=== PATIENT | female | born 1940 | race Caucasian/White ===

== ENCOUNTER 2017-04-27 14:16 | Emergency (ER) | payer OTHER ==
[2017-04-27 14:26] VITALS: BP 128/80; BMI 31.8
--- NOTE | 2017-04-27 15:28 | DR.GENAD ---
HPI - PCP Primary Care Physician: Thom - Complaint/Symptoms Chief Complaint Doctors Comments: Patient presents with complaint of cough that has gotten worse in the past couple days. Has history of lung bronchitis/copd. Chief Complaint:: "I had the flu around otto and I got over it. Now I feel just like I did when I had the flu and I feel like I can't breath. I have had a productive cough for years now, but it seems a little worse. Also, a couple of days ago I was cleaning the bathroom and I guess the chemicals were too strong. I can't smell anything now. I am thinking it could be some chemical pnemonia." - Source History Provided: Patient - Mode of Arrival Mode of Arrival: Ambulatory - Timing Onset of Chief Complaint: 04/25/17 PMH - PMH Past Medical History: Yes Past Medical History: Asthma, Diabetes, Hypertension Past Surgical History: Yes Surgical History: Hysterectomy - Family History History of Family Medical Conditions: Yes Family Medical History: Diabetes Mellitus, MD, Hypertension - Social History Does patient currently use any type of tobacco product: No Have you used tobacco products in the last 12 months: No Type of Tobacco Use: None Does any household member use tobacco: No Alcohol Use: Rarely Do you use any recreational Drugs:: No Lives With: Family Lives Where: Home - infectious screening In the last 2 months have you had wt loss of >10#?: NO Have you had fever, night sweats or hemotysis?: No Have you traveled outside the country in the last 6 months?: No Isolation: Standard ROS - Review of Systems Eyes: No Symptoms Reported ENTM: No Symptoms Reported Respiratoy: Non-Productive Cough Cardiovascular: No Symptoms Reported Gastrointestinal/Abdominal: No Symptoms Reported Genitourinary: No Symptoms Reported Neurological: No Symptoms Reported Musculoskeletal: No Symptoms Reported Integumentary: No Symptoms Reported Hematologic/Lymphatic: No Symptoms Reported Endocrine: No Symptoms Reported Psychiatric: No Symptoms Reported All Other Systems: Reviewed and Negative PE - Vital Signs Vitals: Temperature 100.1 F Pulse Rate 73 Respiratory Rate 20 Blood Pressure 128/80 O2 Sat by Pulse Oximetry 96 - General General Appearance: Alert, In No Apparent Distress - Head Head Exam: Normal Inspection, Atraumatic - Eyes Eye exam: Normal Appearance, PERRL, EOMI - ENT ENT Exam: Normal Exam, Normal Oropharynx External Ear Exam: Normal External Inspection TM/Canal Exam: Bilateral Normal Nose Exam: Normal Nose Exam Mouth Exam: Normal Inspection Throat Exam: Normal Inspection - Neck Neck Exam: Normal Inspection - Chest Chest Inspection: Normal Inspection - Respiratory Respiratory Exam: Prolonged Expiratory Phase Respiratory Exam: Bilateral Rhonchi - Cardiovascular Cardiovascular Exam: Regular Rate - Abdominal Exam Abdominal Exam: Normal Inspection, Normal Bowel Sounds Abdominal Tenderness: negative: RUQ, RLQ, LUQ, LLQ, Epigastrium, Suprapubic, Diffuse, Mild, Moderate, Severe, Other - Extremities Extremities Exam: Normal Inspection, Full ROM - Back Back Exam: Normal Inspection - Neurologic Neurological Exam: Alert, Oriented X3, CN II-XII Intact - Psychiatric Psychiatric Exam: Normal Affect - Skin Skin Exam: Warm, Dry, Intact ROR - Labs Reviewed Result Diagrams: 04/27/17 15:50 04/27/17 15:50 Laboratory: WBC 7.4 X10^3/uL (3.6-10.0) 04/27/17 15:50 RBC 4.76 X10^6/uL (3.5-5.4) 04/27/17 15:50 Hgb 14.9 g/dL (12.0-16.0) 04/27/17 15:50 Hct 43.5 % (36.0-47.0) 04/27/17 15:50 MCV 91.3 fL (80.0-100.0) 04/27/17 15:50 MCH 31.3 pg (27.0-34.0) 04/27/17 15:50 MCHC 34.3 g/dL (33.0-35.0) 04/27/17 15:50 RDW 13.6 % (11.6-16.5) 04/27/17 15:50 Plt Count 201 X10^3/uL (150.0-450.0) 04/27/17 15:50 MPV 8.5 fL (7.4-11.0) 04/27/17 15:50 Neut % 78.4 % (42.0-75.0) H 04/27/17 15:50 Lymph % 11.7 % (21.0-51.0) L 04/27/17 15:50 [place] % 8.2 % (0.0-13.0) 04/27/17 15:50 Eos % 1.2 % (0.9-2.9) 04/27/17 15:50 Baso % 0.5 % (0.2-1.0) 04/27/17 15:50 Neut # 5.8 x10^3/uL (2.2-4.8) H 04/27/17 15:50 Lymph # 0.9 X10^3/uL (1.3-2.9) L 04/27/17 15:50 [place] # 0.6 x10^3/uL (0.3-0.8) 04/27/17 15:50 Eos # 0.1 x10^3/uL (0.0-0.2) 04/27/17 15:50 Baso # 0.0 X10^3/uL (0.0-0.1) 04/27/17 15:50 Absolute Nucleated RBC 0.0 /100WBC 04/27/17 15:50 Sodium 137 mmol/L (136-145) 04/27/17 15:50 Corrected Sodium 138 mmol/L (136-145) 04/27/17 15:50 Potassium 3.9 mmol/L (3.5-5.1) 04/27/17 15:50 Chloride 100 mmol/L (98-107) 04/27/17 15:50 Carbon Dioxide 26.5 mmol/L (21-32) 04/27/17 15:50 BUN 7 mg/dL (7-18) 04/27/17 15:50 Creatinine 0.89 mg/dL (0.55-1.02) 04/27/17 15:50 Est GFR (MDRD) Af Amer > 60 (>60) 04/27/17 15:50 Est GFR (MDRD) Non-Af > 60 (>60) 04/27/17 15:50 Glucose 145 mg/dL (65-99) H 04/27/17 15:50 Calcium 9.0 mg/dL (8.5-10.1) 04/27/17 15:50 Corrected Calcium TNP 04/27/17 15:50 Total Bilirubin 0.30 mg/dL (0.2-1.0) 04/27/17 15:50 AST 87 Units/L (15-37) H 04/27/17 15:50 ALT 94 Units/L (12-78) H 04/27/17 15:50 Alkaline Phosphatase 76 Units/L (46-116) 04/27/17 15:50 Total Protein 7.9 g/dL (6.4-8.2) 04/27/17 15:50 Albumin 3.8 g/dL (3.4-5.0) 04/27/17 15:50 Globulin 4.1 g/dL (2.5-4.5) 04/27/17 15:50 Albumin/Globulin Ratio 0.9 Ratio (1.1-2.1) L 04/27/17 15:50 Influenza Type A (PCR) Negative (NEGATIVE) 04/27/17 14:57 Influenza Type B (PCR) Positive (NEGATIVE) A 04/27/17 14:57 - XRAY XRAY Interpreted by: Radiologist (Chest; No acute chest findings) - Diagnosis Discharge Problem: Influenza A - Discharge Plan Condition: Stable - Follow ups/Referrals Follow ups/Referrals: Chris BARRETO [Primary Care Provider] - 3 days - Instructions
[2017-04-27 16:04] LABS: BASOPHILS % (AUTO) 0.5 % (0.2-1.0); EOSINOPHILS # (AUTO) 0.1 x10^3/uL (0.0-0.2); EOSINOPHILS % (AUTO) 1.2 % (0.9-2.9); HEMATOCRIT 43.5 % (36.0-47.0); HEMOGLOBIN 14.9 g/dL (12.0-16.0); LYMPHOCYTES # (AUTO) 0.9 X10^3/uL (1.3-2.9); LYMPHOCYTES % (AUTO) 11.7 % (21.0-51.0); MEAN CORPUSCULAR HEMOGLOBIN 31.3 pg (27.0-34.0); MEAN CORPUSCULAR HGB CONC 34.3 g/dL (33.0-35.0); MEAN CORPUSCULAR VOLUME 91.3 fL (80.0-100.0); MEAN PLATELET VOLUME 8.5 fL (7.4-11.0); MONOCYTES # (AUTO) 0.6 x10^3/uL (0.3-0.8); MONOCYTES % (AUTO) 8.2 % (0.0-13.0); NEUTROPHILS # (AUTO) 5.8 x10^3/uL (2.2-4.8); NEUTROPHILS % (AUTO) 78.4 % (42.0-75.0); PLATELET COUNT 201 X10^3/uL (150.0-450.0); RED BLOOD COUNT 4.76 X10^6/uL (3.5-5.4); RED CELL DISTRIBUTION WIDTH 13.6 % (11.6-16.5); WHITE BLOOD COUNT 7.4 X10^3/uL (3.6-10.0)
--- NOTE | 2017-04-27 16:06 | RAD ---
Examination: Chest, PA and lateral views History: Cough, flu Findings: Normal heart size with clear lungs and pleural spaces. Impression: No acute or significant chest findings. Reported By:
[2017-04-27 16:14] LABS: ALANINE AMINOTRANSFERASE 94 Units/L (12-78); ALBUMIN 3.8 g/dL (3.4-5.0); ALKALINE PHOSPHATASE 76 Units/L (46-116); ASPARTATE AMINO TRANSFERASE 87 Units/L (15-37); BLOOD UREA NITROGEN 7 mg/dL (7-18); CARBON DIOXIDE 26.5 mmol/L (21-32); CHLORIDE 100 mmol/L (98-107); COR NA(FOR HYPERGLY) 138 mmol/L (136-145); CREATININE 0.89 mg/dL (0.55-1.02); SODIUM 137 mmol/L (136-145); TOTAL PROTEIN 7.9 g/dL (6.4-8.2); eGFR BLACK RACES > 60 (>60); eGFR NON BLACK RACES > 60 (>60)
== END 2017-04-27 16:34 | disposition home or self-care (01) ==
LOC: ER 14:32 → MERGE 14:32 → ER 16:34
DX: J11.1 Influenza due to unidentified influenza virus with other respiratory manifestations (principal)
CPT/HCPCS: 36415; 71046; 80053; 85025; 87502; 99282